=== PATIENT | male | born 1955 | race Caucasian/White ===

== ENCOUNTER 2024-04-17 09:08 | Emergency (ER) | payer OTHER, SELFPAY ==
[2024-04-17 09:13] VITALS: BP 131/91
--- NOTE | 2024-04-17 09:41 | ED.GENMED ---
History of Present Illness
General
Chief Complaint: Fall
Source: patient
Time Seen by Provider: 04/17/24 09:29
Travel History
Have you had any contact with someone who has COVID-19?: No
Do you have any symptoms of coronavirus? Fever > 100 degrees, chills, cough, shortness of breath, sore throat, loss of taste or smell, muscle aches, or headache?: No
History of Present Illness
History of Present Illness:
This patient is a 68-year-old male who was cleaning the gutters today while on a ladder, and notes that the ladder slowly slid down the house causing him to fall with the latter. He describes it as a 'slow' fall. He hit his face against the ladder
with the fall. There was no reported loss of consciousness. He takes 81 mg of aspirin per day, otherwise no antiplatelet or anticoagulation agents. He denies headache, neck pain, numbness, tingling, change in vision, change in speech, dizziness,
chest pain, shortness of breath, or other complaints. He does note abrasions to the anterior aspect of his lower extremities/davis area bilaterally. He also suffered a laceration to the left eyebrow area. Patient denies other complaints. He is
unclear of his tetanus status and request that we updated today
Past History
Past History
ED Past Medical History: CAD, GERD, HTN, Hypercholesterolemia and NV
ED Past Surgical History: Cardiac (Stent) and Other (Hernia repair)
Social History
Tobacco: Smoker
Drug: None
Personal:
Living: with family
Employment: Employed
Phy Exam
Physical Exam
Physical Exam:
GENERAL: Alert , in no apparent distress, pleasant, making jokes with staff
EYE: pupils equal and reactive, EOMI, no photophobia
NECK: Supple, no significant adenopathy, no midline tenderness.
ENT: o/p clr, mmm, no arora, no raccoon, no signs of head or facial injury with the exception of eyebrow laceration as noted below.
CARDIAC: Regular rate and rhythm .
LUNGS: Clear breath sounds bilaterally, no acute respiratory distress, no wheezes/rales/rhonchi, no chest wall tenderness or crepitus or bruising
ABDOMEN: Soft, without focal tenderness, no r/g
NEUROLOGICAL: Alert and oriented, no focal neuro deficits, speaks in full sentences easily, motor 5 out of 5, sensory intact, cranial nerves II through XII intact
SKIN: Warm and dry, superficial abrasions noted on bilateral davis without active bleeding. Patient has a irregularly shaped 2.5 cm laceration at the left eyebrow area to the level of soft tissue.
MUSCULOSKELETAL: No edema, well perfused.
PSYCH: Normal and appropriate interaction.
Course
Orders/Labs/Results
Orders:
Orders
04/17/24 09:[address] [CT Head W/o Iv Contrast] Urgent
Comment:
Reason For Exam: head injury after a 6ft fall
04/17/24 09:40
Tetanus/Diphth/Acelpertussis [Adacel] 0.5 ml IM .ONCE ONE
Nursing to Place Non Medication Order As Directed
Physician Order: irrigate wound please
Above order entered?: Yes
Vital Signs
Initial and Last Documented VS:
Initial Vital Signs
Temp Pulse Resp BP Pulse Ox
98.0 F 71 20 131/91 97
04/17/24 09:13 04/17/24 09:13 04/17/24 09:13 04/17/24 09:13 04/17/24 09:13
Last Documented Vital Signs
Temp Pulse Resp BP Pulse Ox
98.0 F 71 20 131/91 97
04/17/24 09:13 04/17/24 09:13 04/17/24 09:13 04/17/24 09:13 04/17/24 09:13
Procedures
Laceration Closure
Left Eye brow:
Status of Wound: clean
Size of Wound in cm: 2.5
Description of Wound Edges: ragged
Preparation: cleaned with saline
Anesthesia: 1% Lidocaine with epi
Revision/Debridement: routine- no revision
Wound exploration: explored to base- no FB
Type of Closure: single layer closure
Skin Closure Material: 5-0 prolene
Number of sutures: 8
*Critical Care Note
Total Time (30-74mins, 75-104mins- exclusive of procedures): Not Applicable
Update Note
Update Note:
Patient presents to the Emergency Department with ___fall from a ladder
Number and Complexity of Problems Addressed at the Encounter
� Chronic conditions affecting care:
� Acute Exacerbation and/or Progression of Chronic Illness:
� Differential Diagnosis includes: But not limited to intracranial injury, fracture, laceration, etc.
Amount and/or Complexity of Data to be Reviewed and Analyzed
� I performed an independent evaluation of and my interpretation is:
EKG:
CT:Air density present within the frontal scalp region and extending inferiorly anterior to the frontal sinuses, compatible with the history of laceration.
There is no evidence for calvarial fracture.
No evidence of acute intracranial abnormality.
Xrays:
Laboratory Studies:
Other:
� Review of other/old records reveals:
� Clinical information was obtained by an independent historian:
� Prescriptions/Medications Considered but not given:
� Further testing considered but not performed:
Risk of Complications and/or Morbidity or Mortality of Patient Management
� Social determinants of health affecting care:
� Discussion with other providers (PCP, Hospitalists, Consultants, etc):
� Escalation of care including admission/observation vs risk of discharge considered: Patient tolerated laceration repair without difficulty. Total of 8 sutures placed. Upon cleaning of lower extremity wounds, abrasions
previously noted more consistent with superficial laceration, repaired with glue. Discussed with patient importance of follow-up and reasons to return to the ER.
ED Attending Note
-
Portions of this chart may have been created with voice recognition software.� Occasional wrong word or��sound alike� substitutions may have occurred due to the inherent limitations of voice recognition software.
Discharge Plan
Departure
Patient Disposition: Home (Routine Discharge)
Date of Disposition: 04/17/24
Time of Disposition: 10:34
Patient with high blood pressure during this ER visit?: Yes
Condition: Good
Discharge Problem:
Laceration, Fall
Instructions: Laceration Repair With Glue (DC), Head Injury in Adults (DC), Laceration Repair With Stitches (DC), BLOOD PRESSURE
Prescriptions:
No Action
oxycodone 5 MG tablet
5 - 10 mg PO Q4HPRN PRN (Reason: pain) Qty: 20 0RF
acetaminophen [Tylenol] 325 MG capsule
650 mg PO Q4HPRN PRN (Reason: mild to moderate pain) Qty: 1 0RF
Referrals:
Seamus Painting MD [Family Provider] - Follow up in 5-7 days
Activity Restrictions/Additional Instructions:
YOU HAD A TOTAL OF 8 SUTURES PLACED AT THE LEFT EYEBROW AREA. PLEASE SEE YOUR PRIMARY CARE DOCTOR ON THURSDAY FOR SUTURE REMOVAL. IF YOU DEVELOP FEVER, CHILLS, DRAINAGE, INCREASING SWELLING, OR OTHER WORRISOME SIGNS, PLEASE RETURN TO THE ER
IMMEDIATELY. YOUR TETANUS WAS UPDATED TODAY.
Interventions
Interventions:
*Risk Screen - Suicide Last Done: 04/17/24 09:58
*General Assessment Last Done: 04/17/24 09:58
*Neglect/Abuse Screening Last Done: 04/17/24 09:58
*ED COVID-19 Vaccine History Last Done: 04/17/24 09:58
ED-Musculoskeletal Assessment Last Done: 04/17/24 10:12
ED- Neurological Assessment Last Done: 04/17/24 10:12
ED-Skin Assessment Last Done: 04/17/24 10:12
Discharge Date and Time
Print Language: JORDANIAN
[2024-04-17] MEDS: ADACEL 0.5 ML IM (09:59)
== END 2024-04-17 10:44 | disposition home or self-care (01) ==
LOC: EMR 09:08
PROVIDERS: EMERGENCY PHYSICIAN Emergency Medicine; FAMILY PHYSICIAN Family Medicine
DX: S01.112A Laceration without foreign body of left eyelid and periocular area, initial encounter (principal); S80.812A Abrasion, left lower leg, initial encounter; S80.811A Abrasion, right lower leg, initial encounter; W11.XXXA Fall on and from ladder, initial encounter; Y93.H9 Activity, other involving exterior property and land maintenance, building and construction; Y92.008 Other place in unspecified non-institutional (private) residence as the place of occurrence of the external cause; Z23 Encounter for immunization; I25.10 Atherosclerotic heart disease of native coronary artery without angina pectoris; I10 Essential (primary) hypertension; E78.00 Pure hypercholesterolemia, unspecified; K21.9 Gastro-esophageal reflux disease without esophagitis; F17.200 Nicotine dependence, unspecified, uncomplicated; I25.2 Old myocardial infarction; Z95.5 Presence of coronary angioplasty implant and graft
CPT/HCPCS: 99284; 12011; 12001; 90471; 70450; 90715

== ENCOUNTER → 2024-05-20 10:32 | Outpatient (REF) | payer OTHER, SELFPAY | LOC: RAD 10:32 | PROVIDERS: ATTENDING PHYSICIAN Family Medicine | DX: Z87.891 Personal history of nicotine dependence (principal); F17.210 Nicotine dependence, cigarettes, uncomplicated | CPT/HCPCS: 71271 ==